=== PATIENT | female | born 1945 | race Caucasian/White ===

== ENCOUNTER → 2019-05-11 | Outpatient (CLI) | payer BC | END | disposition home or self-care (01) | LOC: RADPV 09:42 | PROVIDERS: ATTEND Nurse Practitioner | DX: J98.11 Atelectasis (principal); R91.1 Solitary pulmonary nodule; J98.4 Other disorders of lung; R53.82 Chronic fatigue, unspecified; I70.0 Atherosclerosis of aorta ==

== ENCOUNTER → 2019-05-17 | Outpatient (CLI) | payer BC, MEDICARE ==
[~2019-05-17] MED LIST: IOVERSOL 320 MG/ML 100 ML VIAL ONE; SODIUM CHLORIDE 0.9% 100 ML ONE
== END | disposition home or self-care (01) ==
LOC: RADMN 07:47
PROVIDERS: ATTEND Nurse Practitioner
DX: R91.1 Solitary pulmonary nodule (principal); J44.9 Chronic obstructive pulmonary disease, unspecified
CPT/HCPCS: 71260; J7050; Q9967

== ENCOUNTER → 2020-03-06 | Outpatient (CLI) | payer BC, MEDICARE | END | disposition home or self-care (01) | LOC: RADMN 13:12 | PROVIDERS: ATTEND Nurse Practitioner | DX: I67.82 Cerebral ischemia (principal); J32.0 Chronic maxillary sinusitis; R41.3 Other amnesia | CPT/HCPCS: 70551 ==